=== PATIENT | female | born 1950 | race Caucasian/White ===

== ENCOUNTER 2017-04-04 05:50 | Inpatient (IN) | payer BC, MEDICARE ==
[2017-04-04] MEDS ORDERED: TRANEXAMIC ACID 1,000 MG in NORMAL SALINE 100 ML IV PRN (06:00)
[2017-04-04] MEDS ORDERED: RINGER'S SOLUTION,LACTATED 1,000 ML IV PRN (06:00)
[2017-04-04] MEDS ORDERED: CLINDAMYCIN PHOSPHATE 900 MG in DEXTROSE 5 % IN WATER 100 ML IV PRN ×2 (06:00)
[2017-04-04] MEDS ORDERED: ROPIVACAINE HCL/PF 100 MG, EPINEPHrine 0.2 MG, KETOROLAC TROMETHAMINE 30 MG in NORMAL S... IJ PRN (06:00)
[2017-04-04] MEDS ORDERED: RINGER'S SOLUTION,LACTATED 1,000 ML IV ONE ×3 (07:45→10:00)
[2017-04-04] MEDS ORDERED: MAG HYDROX/ALUMINUM HYD/SIMETH 30 ML UDC PO PRN (09:46)
[2017-04-04] MEDS ORDERED: ZOLPIDEM TARTRATE 5 MG TABLET PO PRN (09:46)
[2017-04-04] MEDS ORDERED: ONDANSETRON HCL/PF 2 MG/ML VIAL IV PRN (09:46)
[2017-04-04] MEDS ORDERED: MAGNESIUM HYDROXIDE 30 ML UDC PO PRN (09:46)
[2017-04-04] MEDS ORDERED: HYDROmorphone HCL 1 MG/ML DISP.SYRIN IV PRN (09:46)
[2017-04-04] MEDS ORDERED: PROMETHAZINE HCL 5 MG in DEXTROSE 5 % IN WATER 50 ML IV PRN ×2 (09:46)
[2017-04-04] MEDS ORDERED: diphenhydrAMINE HCL 50 MG/ML VIAL IV PRN (09:46)
[2017-04-04] MEDS ORDERED: FLUTICASONE PROPIONATE 120 SPRAY INHALER NS PRN (09:48)
[2017-04-04] MEDS ORDERED: EPINEPHrine 0.3 MG DISP.SYRIN IM PRN (09:48)
--- NOTE | 2017-04-04 09:51 | OR ---
Operative Report - Dictated Report Narrative: Date: 04/04/2017 Preoperative diagnosis: Right Knee degenerative joint disease. Postoperative diagnosis: Right Knee degenerative joint disease. Procedure: Right Total knee arthroplasty. Surgeon: Kirk Cruz M.D. Fire Code Inspector: Tad Marrufo PA-C Anesthesia: Spinal with regional block and local periarticular joint injection. Complications: None Specimens: Bone for disposal. Estimated blood loss: Minimal. Tourniquet time: 80 Minutes at 325 millimeters of mercury. Retained implants: Depuy Attune size 4 right lugged cemented posterior stabilized femoral component. Size 5 fixed-bearing cemented tibial platform. 4 by 5 millimeter posterior stabilized cross-linked tibial insert. 38 millimeter medialized patella button. Indications: Mrs. Zimmer is a 67-year-old female who has had long-standing right knee pain. This patient was followed in my clinic for period of time with significant complaints of right knee pain consistent with arthritic changes. She had failed conservative measures including, but not limited to, activity modification, passage of time, medications, and other conservative measures. Patient wished to proceed with surgical treatment. The risks, benefits, and alternatives were discussed in clinic. The risks of , blood clots, bleeding, infection, nerve/tendon blood vessel/ injury, malposition of components, intraoperative fracture, postoperative limited range of motion, persistent pain, failure of components, and need for additional procedures. Patient wished to proceed consent was obtained after answering all questions. Procedure: After marking the correct extremity on the floor, the patient was taken to the operating room. A timeout was performed. IV antibiotics consisting of clindamycin secondary to cephalexin allergy were administered prior to the procedure. A regional followed by spinal anesthetic was induced by anesthesia, per my request, on the operative table with all bony prominences well-padded. Holliday catheter was placed, and a bump was placed under the operative side buttock. SCDs and CRISTINA hose were utilized on the nonoperative leg. A well-padded tourniquet was applied to the operative thigh. The operative leg was then pre-scrubbed with alcoho,l prepped, and draped in a standard sterile fashion. After exsanguinating the extremity with an Esmarch bandage, the tourniquet was inflated. After marking out the anterior knee for standard incision centered over the patella, the skin was incised and dissected down to the joint retinaculum. The joint retinaculum was marked out as well as the horizontal axis of the patella, and a standard medial parapatellar arthrotomy was then made. The most proximal aspect of the quadriceps tendon and the patella tendon insertion were protected from release. A partial synovectomy was performed as well as a resection of the infrapatellar fat pad. The distal femoral fat pad proximal to the trochlea was also resected using cautery. The soft tissues were elevated off the medial aspect of the proximal tibia using a Bunn elevator ensuring that we did not transect the medial collateral ligament. Upon initial evaluation range of motion was approximately 0 degrees to 140 degrees of flexion. There were signs of advanced arthrosis in the medial and patellofemoral joint spaces. There were large marginal osteophytes which were removed with a rongeur. The knee was hyperflexed and the patella was tucked laterally. Protecting the surrounding soft tissues with Homans, an entry drill was placed down the femoral canal using Whitesides line for guidance into the entry point. The intramedullary femoral alignment stanislav was utilized in order to cut the distal femur in 5 degrees of valgus resecting 10 millimeters of bone. Next the distal femur was sized to a size 4. A posterior referencing guide was utilized to place the distal femoral cutting block in 3 degrees of external rotation. This was pinned into place. The rotation was confirmed both visually and based on anatomic landmarks. The 4 in 1 cutting jig of the appropriate size was utilized in order to make all bony cuts. The angle wing was used to ensure no notching. Retractors were utilized in order to protect surrounding soft tissues. This cut did not result in any excessive notching. We then cut the box centered over the distal femur. This allowed for resection of the anterior and posterior cruciate ligaments. I then turned my attention to the preparation of the tibia. Using an extra medullary tibial alignment stanislav, 2 millimeters of bone was resected off the medial articular surface. This was made perpendicular to the mechanical axis of the joint with the alignment stanislav centered over the ankle mortise. The alignment stanislav was checked and was noted to be parallel to the mechanical axis, centered over the medial one third of the tibial tubercle, paralleling the anterior surface of the tibia. We then turned our attention to the remaining meniscus and soft tissues. These were removed while protecting the surrounding ligaments and soft tissues. The marginal osteophytes off the anterior, posterior, medial, lateral aspects of the femur and tibia were removed. The tibia was sized out to a size 5. Next the tibia was drilled and punched in an externally rotated position. Next the trial femur and a series of tibial inserts were utilized in order to allow for full extension and maximal flexion. It was found that a 5 millimeter insert gave the best range of motion and stability at multiple flexion points as well as at full extension there was less than 2 mm of gapping both medially and laterally. There is minimal anterior translation with the knee at 90 degrees of flexion and no signs of being able to dislocate the knee. The patella was then prepared. The initial thickness was 22 millimeters. This was reamed down to 12 millimeters parallel to the anterior surface of the patella. It was sized out to a size 38 medialized patella button. This was then drilled and trialed. Without any medial restraint the patella tracked appropriately and did not sublux or dislocate. At this point, it was felt these were the appropriate sized implants, and all trials were removed. The standard periarticular joint injection consisting of ropivacaine, Toradol, and epinephrine were injected into the periarticular joint tissues. The bony surfaces were thoroughly irrigated with a pulsatile- suction saline irrigation device. A bone plug from the prior resected anterior chamfer cut was placed into the drill hole at the distal femur. The bony surfaces were then dried in preparation for placement of the implants. The cement was vacuum mixed per the coffee maker's instructions. The cement was placed on the dry bony surfaces and posterior aspect of the implants. The implants were impacted into place, removing all extruded cement. At this point anesthesia administered tranexamic acid per protocol intravenously. The knee was placed in extension with axial loading with the trial insert while the cement cured. Once the cement cured, all remaining extruded cement was removed. The knee was placed through a range of motion with the trial insert to ensure appropriate range of motion and stability. Final range of motion was approximately 0 to 130 degrees. The knee was again thoroughly irrigated with pulsatile saline lavage. The final polyethylene insert was then impacted into place ensuring no retained soft tissues. The remaining periarticular joint injection was injected. A medium Hemovac drain was placed exiting superior laterally. The knee was then placed over a triangle and the arthrotomy was closed with interrupted #1 Vicryl after thoroughly irrigating the joint. The deep and subcutaneous tissues were closed with interrupted 0 and 3-0 Vicryl respectively. Skin was closed with a running subcutaneous 3-0 Monocryl and Prineo Dermabond dressing. 4 x 4's, Sof-Rol, and a full leg Ender wrap were applied. All sponge, needle, blade, and instrument counts were correct prior to closing the wounds. Postoperative condition: The patient was awoken and transferred to the postanesthesia care unit in stable condition. Plan is to be admitted to the inpatient medical/surgical floor postoperatively for 24 hours of IV antibiotics , physical therapy, occupational therapy, and medical comanagement. Patient will be weightbearing as tolerated with range of motion as tolerated. DVT prophylaxis will be with SCDs, CRISTINA hose, and pharmacological anticoagulation. Anticipated hospital stay is approximately 2-4 days.
[2017-04-04] MEDS: DEXTROSE 5%-LACTATED RINGERS 1,000 ML IV PRN ×2 (11:09→19:07)
[2017-04-04] MEDS: KETOROLAC TROMETHAMINE 15 MG/ML VIAL IV SCH ×3 (11:09→23:25)
[2017-04-04] MEDS: ACETAMINOPHEN 500 MG TABLET PO PRN (15:22)
[2017-04-04] MEDS ORDERED: CLINDAMYCIN PHOSPHATE 900 MG in DEXTROSE 5 % IN WATER 100 ML IV SCH ×2 (19:47)
[2017-04-04] MEDS: METOPROLOL SUCCINATE 50 MG TABLET.SA PO SCH (20:37)
[2017-04-04] MEDS: SIMVASTATIN 40 MG TABLET PO SCH (20:38)
[2017-04-04] MEDS: SENNOSIDES/DOCUSATE SODIUM 1 TAB TABLET PO SCH (20:38)
[2017-04-05] MEDS: DEXTROSE 5%-LACTATED RINGERS 1,000 ML IV PRN (03:20)
[2017-04-05] MEDS: KETOROLAC TROMETHAMINE 15 MG/ML VIAL IV SCH ×4 (05:07→22:48)
[2017-04-05 07:05] LABS: Anion Gap 9.1 mmol/L (6.8-13.8); BUN/Creatinine Ratio 14.3 (9.0-21.6); Estimated Creat Clear 66.4; Potassium 4.1 mmol/L (3.4-4.6)
--- NOTE | 2017-04-05 08:21 | PN ---
Subjective - Date and Time Seen Date: 04/05/17 Time: 08:14 Subjective Narrative: Reports pain controlled. No nausea at this time. [place] she did well getting up to the chair for breakfast this am. Mild lightheadedness. No other complaints. Objective Objective Narrative: Up in chair. Bandages C/D/I. N/V intact PF/DF ankle. Calf supple. Dorsalis pulse 1+. - Vitals Vitals: Last Vital Signs Temp 35.6 C L 04/05/17 06:23 Pulse 54 L 04/05/17 06:23 Resp 18 04/05/17 06:23 BP 123/97 04/05/17 06:23 Pulse Ox 96 04/05/17 06:23 - Abnormal Lab Findings Abnormal Lab Findings: Abnormal Lab Results 04/05/17 Range/Units 06:33 Sodium 145 H (132-142) mmol/L Plasma Sodium 145 H (130-142) mmol/L Chloride 110 H (97-106) mmol/L - Exam Constitutional: Present: Alert, Oriented x3, Cooperative, No distress - Ector: 1. [facility] Physician Documentation - Urinary Catheter Management Urethral (Holliday) Date of Insertion: 04/04/17 Time of Insertion: 08:10 Assessment/Plan - Problems/Diagnosis (1) Status post total right knee replacement using cement Problem: Acute Narrative: PT/Anticoagulation, pain control, Hemogram not in chart at this time, patient will need a wheeled walker for 4-6 weeks post op for ambulation (2) Hypotension Problem: Acute Narrative: Patients Metoprolol was in orderheld. Hemogram still pending. (3) Bradycardia Problem: Acute (4) Hyperlipemia Problem: Chronic (5) Supraventricular tachycardia Problem: Chronic
[2017-04-05] MEDS: ENOXAPARIN SODIUM 40 MG/0.4 ML SYRG SC SCH (08:32)
[2017-04-05] MEDS: LACTOBACILLUS ACIDOPHILUS 100 CAP BTL PO SCH (08:32)
[2017-04-05] MEDS: OMEGA-3 FATTY ACIDS 1 CAP CAPSULE PO SCH (08:33)
[2017-04-05] MEDS: oxyCODONE HCL/ACETAMINOPHEN 1 TAB TABLET PO PRN ×2 (18:38→23:23)
[2017-04-05] MEDS: SENNOSIDES/DOCUSATE SODIUM 1 TAB TABLET PO SCH (21:16)
[2017-04-05] MEDS: SIMVASTATIN 40 MG TABLET PO SCH (21:17)
[2017-04-05] MEDS: METOPROLOL SUCCINATE 50 MG TABLET.SA PO SCH (21:17)
[2017-04-06] MEDS: KETOROLAC TROMETHAMINE 15 MG/ML VIAL IV SCH (04:38)
[2017-04-06 05:58] LABS: Hematocrit 32.1 % (37.0-47.0); Hemoglobin 10.5 gm/dL (12.5-16.0); Mean Cell Volume 89.9 fl (78-100); Mean Corpuscular Hemoglobin 29.4 pg (27-31); Mean Corpuscular Hgb Conc 32.7 g/dl (32-36); Mean Platelet Volume 12.4 fl (6.0-9.5); Platelet Count 104 K/mm3 (150-450); Red Blood Count 3.57 M/mm3 (4.2-5.4); Red Cell Distribution Width 13.3 % (11.5-14.0); White Blood Count 6.5 K/mm3 (4.0-10.5)
[2017-04-06 06:27] LABS: Anion Gap 11.3 mmol/L (6.8-13.8); BUN/Creatinine Ratio 18.1 (9.0-21.6); Calcium * 8.8 mg/dL (7.9-10.9); Carbon Dioxide 26.6 mmol/L (24-32.6); Estimated Creat Clear 54.4; Potassium 3.9 mmol/L (3.4-4.6)
[2017-04-06] MEDS: ENOXAPARIN SODIUM 40 MG/0.4 ML SYRG SC SCH (08:32)
[2017-04-06] MEDS: OMEGA-3 FATTY ACIDS 1 CAP CAPSULE PO SCH (08:33)
[2017-04-06] MEDS: LACTOBACILLUS ACIDOPHILUS 100 CAP BTL PO SCH (08:34)
--- NOTE | 2017-04-06 09:41 | DS ---
(1) Acute blood loss anemia Problem: Acute (2) Bradycardia Problem: Chronic (3) Hypotension Problem: Acute (4) Status post total right knee replacement using cement Problem: Acute (5) Hyperlipemia Problem: Chronic (6) Supraventricular tachycardia Problem: Chronic Description of Stay: Mrs. Zimmer was admitted to the floor after undergoing right total knee arthroplasty. Tolerated this well. Was admitted to the floor postoperatively for 24 hours of IV antibiotics, pain control, medical comanagement, and occupational and physical therapy. OT and PT were consulted to assist with activities of daily living and ambulation. Was made weightbearing as tolerated with range of motion as tolerated. Pain was initially controlled with IV regimen. This was transitioned to oral once tolerating a by mouth intake. Was resumed on home diet and medications. Had a Holliday catheter inserted and the operating room which was discontinued on postoperative day 1. A drain was placed intraoperatively into the knee which was discontinued on postoperative day 1. Lovenox SCD and CRISTINA hose were utilized for DVT prophylaxis. Vital signs remained stable to the hospital course. Serial labs were obtained which showed a final hemoglobin of 10.5 grams. BMP was reviewed and was stable. Physical examination throughout the hospital course showed an extremity that had sensation that was intact to light touch, palpable pulses, a benign wound, motor intact to the toes, ankle, and knee. Knee range of motion was approximately 5 degrees to 60 degrees. Once an oral pain regimen was tolerated and physical therapy goals were met, it was felt that they were stable for discharge to home. Instructions: Continue with weightbearing as tolerated and range of motion as tolerated. She is okay to shower as long as there is no drainage from the wound. She is instructed to keep the wound clean and dry and cover with dry gauze and tape and change every 2-3 days as needed if there is any drainage. Cover wound while showering if there is any drainage. Continue with physical therapy. Resume home diet. Report any fever over 101.5 Fahrenheit, uncontrolled pain, increased drainage, foul odor of drainage, new or increased calf pain or shortness of breath, or any other significant complaints. A 325mg dialy aspirin will be started after finishing anticoagulation if not allergic. Continue with CRISTINA hose on the operative extremity until instructed otherwise. No driving until instructed otherwise. Follow up in approximately 10-14 days. Procedures Performed: see notes below List Procedures: Right total knee arthroplasty Discharge Disposition: Home self care Disposition: Home self-care Condition: Good Discharge Activity: Activity as tolerated, Weight bearing Discharge Diet: General/regular food Retirement Therapy: Physicial Therapy Referrals: Jie Estevez MD [Primary Care Provider] - Additional Patient Instructions (free text): Follow up with Dr. Cruz on March at 09:45 am. Prescriptions (Any new or edited meds): Enoxaparin Sodium [Lovenox] 40 mg SC Q24H #7 disp.syrin Sennosides/Docusate Sodium [Senokot-S] 2 tab PO HS #30 tablet oxyCODONE HCL [Oxycontin] 10 mg PO BID #20 tab.sr.12h oxyCODONE HCL/ACETAMINOPHEN [Percocet 5 MG/325 MG] 2 tab PO Q4H PRN #90 tablet PRN Reason: Moderate Pain Complete Home Medications List: Complete Home Medication List: Aspirin [Aspirin Chewable] 81 mg PO DAILY 11/13/12 Simvastatin [Zocor] 40 mg PO HS 11/13/12 EPINEPHrine [Epipen 2-Hosea] 0.3 mg IM ONCE PRN 03/23/17 Fluticasone Propionate [Flonase] 2 spray NS DAILY PRN 03/23/17 Krill/Om-3/Dha/Epa/Phospho/Ast [Megared [place]-3 Krill Oil Sfgl] 1 each PO DAILY 03/23/17 L.acidoph,Paracasei, B.lactis [Probiotic] 1 each PO DAILY 03/23/17 Metoprolol Succinate [Toprol Xl] 50 mg PO HS 03/23/17 Enoxaparin Sodium [Lovenox] 40 mg SC Q24H #7 disp.syrin 04/06/17 Sennosides/Docusate Sodium [Senokot-S] 2 tab PO HS #30 tablet 04/06/17 oxyCODONE HCL [Oxycontin] 10 mg PO BID #20 tab.sr.12h 04/06/17 oxyCODONE HCL/ACETAMINOPHEN [Percocet 5 MG/325 MG] 2 tab PO Q4H PRN #90 tablet 04/06/17 Amb Orders for Discharge: PT Evaluation and Treatment Facility: [facility], Location: Rehabilitation Services
[2017-04-06] MEDS: ACETAMINOPHEN 500 MG TABLET PO PRN (11:14)
[2017-04-06] MEDS ORDERED: ONDANSETRON HCL 4 MG TABLET PO PRN (14:40)
[2017-04-06 16:30] VITALS: BP 106/45
== END 2017-04-06 16:22 | disposition home or self-care (01) | DRG 470 ==
LOC: MS 05:50
PROVIDERS: ADMIT Orthopaedic Surgery; ATTEND Orthopaedic Surgery
PROC: 0SRC0J9 Replacement of Right Knee Joint with Synthetic Substitute, Cemented, Open Approach (ICD-10-PCS; principal; 2017-04-04 09:15)
DX: M17.11 Unilateral primary osteoarthritis, right knee (principal); D62 Acute posthemorrhagic anemia; K21.9 Gastro-esophageal reflux disease without esophagitis; E78.5 Hyperlipidemia, unspecified; R00.1 Bradycardia, unspecified
CPT/HCPCS: 27447; 36415; 73560; 80048; 85027; 97110; 97116; 97163; 97165; 97530; 97535; J2405

== ENCOUNTER 2017-10-15 06:33 | Inpatient (IN) | payer BC, MEDICARE ==
[~2017-10-15 06:33] MED LIST: CLINDAMYCIN PHOSPHATE 900 MG in DEXTROSE 5 % IN WATER 100 ML IV PRN; ROPIVACAINE HCL/PF 100 MG, KETOROLAC TROMETHAMINE 30 MG, EPINEPHrine 0.2 MG in NORMAL S... IJ PRN; TRANEXAMIC ACID 1,000 MG in NORMAL SALINE 100 ML IV PRN
[2017-10-15] MEDS: RINGER'S SOLUTION,LACTATED 1,000 ML IV PRN ×3 (07:12→19:06)
[2017-10-15] MEDS ORDERED: RINGER'S SOLUTION,LACTATED 1,000 ML IV ONE (08:35)
--- NOTE | 2017-10-15 09:42 | POSTOP NO ---
Date of Surgery: 10/15/17 Patient Tolerated the Procedure: Well Post Operative Diagnosis/Procedures: Care Management Specialist: Tad Marrufo PA-C Post-operative Diagnosis: Left knee degenerative joint disease Finding: Above Procedure: Left total knee arthroplasty Estimated Blood Loss: Minimal Specimens: Bone for disposal
[2017-10-15] MEDS ORDERED: MAGNESIUM HYDROXIDE 30 ML UDC PO PRN (09:44)
[2017-10-15] MEDS ORDERED: MAG HYDROX/ALUMINUM HYD/SIMETH 30 ML UDC PO PRN (09:44)
[2017-10-15] MEDS ORDERED: PROMETHAZINE HCL 5 MG in DEXTROSE 5 % IN WATER 50 ML IV PRN ×2 (09:44)
[2017-10-15] MEDS ORDERED: diphenhydrAMINE HCL 50 MG/ML VIAL IV PRN (09:44)
[2017-10-15] MEDS ORDERED: oxyCODONE HCL/ACETAMINOPHEN 1 TAB TABLET PO PRN (09:44)
[2017-10-15] MEDS ORDERED: ZOLPIDEM TARTRATE 5 MG TABLET PO PRN (09:44)
[2017-10-15] MEDS ORDERED: DEXTROSE 5%-LACTATED RINGERS 1,000 ML IV PRN (09:44)
[2017-10-15] MEDS ORDERED: ONDANSETRON HCL/PF 2 MG/ML VIAL IV PRN (09:44)
--- NOTE | 2017-10-15 09:44 | OR ---
Operative Report - Dictated Report Narrative: Date: 10/15/2017 Preoperative diagnosis: Left Knee degenerative joint disease. Postoperative diagnosis: Left Knee degenerative joint disease. Procedure: Left Total knee arthroplasty. Surgeon: Kirk Cruz M.D. Cook Fish Eggs: Tad Marrufo PA-C Anesthesia: Spinal with regional block and local periarticular joint injection. Complications: None Specimens: Bone for disposal. Estimated blood loss: Minimal. Tourniquet time: 75 Minutes at 325 millimeters of mercury. Retained implants: Depuy Attune size 5 narrow left lugged cemented posterior stabilized femoral component. Size 5 fixed-bearing cemented tibial platform. 5 by 6 millimeter posterior stabilized cross-linked tibial insert. 38 millimeter medialized patella button. Indications: Mrs. Zimmer is a 67-year-old female who previously underwent a right total knee arthroplasty did well and had ongoing left knee pain and arthrosis. This patient was followed in my clinic for period of time with significant complaints of left knee pain consistent with arthritic changes. She had failed conservative measures including, but not limited to, activity modification, passage of time, medications, and other conservative measures. Patient wished to proceed with surgical treatment. The risks, benefits, and alternatives were discussed in clinic. The risks of , blood clots, bleeding, infection, nerve/tendon blood vessel/ injury, malposition of components, intraoperative fracture, postoperative limited range of motion, persistent pain, failure of components, and need for additional procedures. Patient wished to proceed consent was obtained after answering all questions. Procedure: After marking the correct extremity on the floor, the patient was taken to the operating room. A timeout was performed. IV antibiotics consisting of clindamycin secondary to allergies were administered prior to the procedure. A regional followed by spinal anesthetic was induced by anesthesia, per my request, on the operative table with all bony prominences well-padded. Holliday catheter was placed, and a bump was placed under the operative side buttock. SCDs and CRISTINA hose were utilized on the nonoperative leg. A well- padded tourniquet was applied to the operative thigh. The operative leg was then pre-scrubbed with alcoho,l prepped, and draped in a standard sterile fashion. After exsanguinating the extremity with an Esmarch bandage, the tourniquet was inflated. After marking out the anterior knee for standard incision centered over the patella, the skin was incised and dissected down to the joint retinaculum. The joint retinaculum was marked out as well as the horizontal axis of the patella, and a standard medial parapatellar arthrotomy was then made. The most proximal aspect of the quadriceps tendon and the patella tendon insertion were protected from release. A partial synovectomy was performed as well as a resection of the infrapatellar fat pad. The distal femoral fat pad proximal to the trochlea was also resected using cautery. The soft tissues were elevated off the medial aspect of the proximal tibia using a Bunn elevator ensuring that we did not transect the medial collateral ligament. Upon initial evaluation range of motion was approximately 0 degrees to 130 degrees of flexion. There were signs of advanced arthrosis in the medial and patellofemoral joint spaces. There were large marginal osteophytes which were removed with a rongeur. The knee was hyperflexed and the patella was tucked laterally. Protecting the surrounding soft tissues with Homans, an entry drill was placed down the femoral canal using Whitesides line for guidance into the entry point. The intramedullary femoral alignment stanislav was utilized in order to cut the distal femur in 5 degrees of valgus resecting 10 millimeters of bone. Next the distal femur was sized to a size 5 narrow. A posterior referencing guide was utilized to place the distal femoral cutting block in 3 degrees of external rotation. This was pinned into place. The rotation was confirmed both visually and based on anatomic landmarks. The 4 in 1 cutting jig of the appropriate size was utilized in order to make all bony cuts. The angle wing was used to ensure no notching. Retractors were utilized in order to protect surrounding soft tissues. This cut did not result in any excessive notching. We then cut the box centered over the distal femur. This allowed for resection of the anterior and posterior cruciate ligaments. I then turned my attention to the preparation of the tibia. Using an extra medullary tibial alignment stanislav, 3 millimeters of bone was resected off the medial articular surface. This was made perpendicular to the mechanical axis of the joint with the alignment stanislav centered over the ankle mortise. The alignment stanislav was checked and was noted to be parallel to the mechanical axis, centered over the medial one third of the tibial tubercle, paralleling the anterior surface of the tibia. We then turned our attention to the remaining meniscus and soft tissues. These were removed while protecting the surrounding ligaments and soft tissues. The marginal osteophytes off the anterior, posterior, medial, lateral aspects of the femur and tibia were removed. The tibia was sized out to a size 5. Next the tibia was drilled and punched in an externally rotated position. Next the trial femur and a series of tibial inserts were utilized in order to allow for full extension and maximal flexion. It was found that a 6 millimeter insert gave the best range of motion and stability at multiple flexion points as well as at full extension there was less than 2 mm of gapping both medially and laterally. There is minimal anterior translation with the knee at 90 degrees of flexion and no signs of being able to dislocate the knee. The patella was then prepared. The initial thickness was 22 millimeters. This was reamed down to 12 millimeters parallel to the anterior surface of the patella. It was sized out to a size 38 medialized patella button. This was then drilled and trialed. Without any medial restraint the patella tracked appropriately and did not sublux or dislocate. At this point, it was felt these were the appropriate sized implants, and all trials were removed. The standard periarticular joint injection consisting of ropivacaine, Toradol, and epinephrine were injected into the periarticular joint tissues. The bony surfaces were thoroughly irrigated with a pulsatile- suction saline irrigation device. A bone plug from the prior resected anterior chamfer cut was placed into the drill hole at the distal femur. The bony surfaces were then dried in preparation for placement of the implants. The cement was vacuum mixed per the cap and hat production supervisor's instructions. The cement was placed on the dry bony surfaces and posterior aspect of the implants. The implants were impacted into place, removing all extruded cement. At this point anesthesia administered tranexamic acid per protocol intravenously. The knee was placed in extension with axial loading with the trial insert while the cement cured. Once the cement cured, all remaining extruded cement was removed. The knee was placed through a range of motion with the trial insert to ensure appropriate range of motion and stability. Final range of motion was approximately 0 to 130 degrees. The knee was again thoroughly irrigated with pulsatile saline lavage. The final polyethylene insert was then impacted into place ensuring no retained soft tissues. The remaining periarticular joint injection was injected. A medium Hemovac drain was placed exiting superior laterally. The knee was then placed over a triangle and the arthrotomy was closed with interrupted #1 Vicryl after thoroughly irrigating the joint. The deep and subcutaneous tissues were closed with interrupted 0 and 3-0 Vicryl respectively. Skin was closed with a running subcutaneous 3-0 Monocryl and Prineo Dermabond dressing. 4 x 4's, Sof-Rol, and a full leg Ender wrap were applied. All sponge, needle, blade, and instrument counts were correct prior to closing the wounds. Postoperative condition: The patient was awoken and transferred to the postanesthesia care unit in stable condition. Plan is to be admitted to the inpatient medical/surgical floor postoperatively for 24 hours of IV antibiotics , physical therapy, occupational therapy, and medical comanagement. Patient will be weightbearing as tolerated with range of motion as tolerated. DVT prophylaxis will be with SCDs, CRISTINA hose, and pharmacological anticoagulation. Anticipated hospital stay is approximately 2-4 days.
[2017-10-15] MEDS ORDERED: EPINEPHrine 0.3 MG DISP.SYRIN IM PRN (09:46)
[2017-10-15] MEDS ORDERED: HYDROmorphone HCL 2 MG/ML VIAL IV PRN (09:52)
--- NOTE | 2017-10-15 10:11 | OR ---
Anesthesia Procedure Note - Anesthesia Procedure Note Date of Service: 10/15/17 Narrative: Vital Signs - Last Taken Temp 35.7 C L 10/15/17 10:00 Pulse 56 L 10/15/17 10:05 Resp 16 10/15/17 10:05 BP 91/43 10/15/17 10:05 Pulse Ox 99 10/15/17 10:05 O2 Oxygen Delivery Method Nasal Cannula 10/15/17 10:10 ANESTHESIA PROCEDURE NOTE Date of Procedure: 10/15/2017 Time of procedure: 7:50 AM. Performed by: AKHIL Puga CRNA, MSN Welfare Eligibility Worker: Nieves Hebert RN. Preprocedure diagnosis: Post knee arthroplasty pain relief. Post procedure diagnosis: Same. Procedure: Left Adductor Canal Block. Indications: Post left total knee arthroplasty pain relief pain relief. Findings: See below. Details of the procedure: The patient was brought to OR for and placed in supine position. The patient's left femoral area to the knee was prepped with chlorhexidine and using ultrasound guidance the left femoral artery and nerve was identified and then followed to the level of the adductor canal. Lidocaine 1% was infiltrated to the skin of the intended injection site. Under ultrasound guidance the saphenous nerve was approached with visualization of a 2 inch shielded block needle. Once saphenous nerve was identified with proximity to the needle tip, the saphenous nerve was surrounded with 18 mL bupivacaine 0.25% with 1-200,000 epinephrine. Please see radiology/ultrasound report for details and retained images of the procedure. EBL: 0 Fluids: N/A. Specimen: N/A. Post procedure condition: The patient tolerated the procedure well. No complications were noted. Thank you for this consultation. Jose Hernandez CRNA, DISTRIBUT[employer] C[employer] ADMINISTRATOR, MSN
[2017-10-15] MEDS: KETOROLAC TROMETHAMINE 15 MG/ML VIAL IV SCH ×3 (10:59→22:14)
[2017-10-15] MEDS: ACETAMINOPHEN 500 MG TABLET PO PRN (15:45)
[2017-10-15] MEDS ORDERED: CLINDAMYCIN PHOSPHATE 900 MG in DEXTROSE 5 % IN WATER 100 ML IV SCH ×2 (19:45)
[2017-10-15] MEDS ORDERED: SIMVASTATIN 40 MG TABLET PO SCH (21:00)
[2017-10-15] MEDS ORDERED: METOPROLOL SUCCINATE 50 MG TABLET.SA PO SCH (21:00)
[2017-10-15] MEDS ORDERED: SENNOSIDES/DOCUSATE SODIUM 1 TAB TABLET PO SCH (21:00)
[2017-10-16] MEDS: KETOROLAC TROMETHAMINE 15 MG/ML VIAL IV SCH ×2 (04:06→10:05)
[2017-10-16 05:54] LABS: Hematocrit 33.3 % (37.0-47.0); Mean Cell Volume 88.8 fl (78-100); Mean Corpuscular Hemoglobin 29.3 pg (27-31); Mean Platelet Volume 11.7 fl (6.0-9.5); Platelet Count 111 K/mm3 (150-450); Red Blood Count 3.75 M/mm3 (4.2-5.4); Red Cell Distribution Width 15.6 % (11.5-14.0); White Blood Count 4.7 K/mm3 (4.0-10.5)
[2017-10-16 06:09] LABS: Anion Gap 8.5 mmol/L (6.8-13.8); BUN/Creatinine Ratio 15.7 (9.0-21.6); Calcium * 8.7 mg/dL (7.9-10.9); Carbon Dioxide 31.4 mmol/L (24-32.6); Estimated Creat Clear 56.9; Potassium 3.9 mmol/L (3.4-4.6)
[2017-10-16] MEDS ORDERED: ENOXAPARIN SODIUM 40 MG/0.4 ML SYRG SC SCH (08:45)
[2017-10-16] MEDS ORDERED: MULTIVITAMIN/IRON/FOLIC ACID 1 TAB TABLET PO SCH (09:00)
[2017-10-16 12:12] VITALS: BP 98/48
--- NOTE | 2017-10-16 12:30 | DS ---
(1) Acute blood loss anemia Problem: Acute (2) Bradycardia Problem: Chronic (3) Hyperlipemia Problem: Chronic (4) Supraventricular tachycardia Problem: Chronic (5) Status post total left knee replacement Problem: Acute Description of Stay: Mrs. Zimmer was admitted to the floor after undergoing left total knee arthroplasty. Tolerated this well. Was admitted to the floor postoperatively for 24 hours of IV antibiotics, pain control, medical comanagement, and occupational and physical therapy. OT and PT were consulted to assist with activities of daily living and ambulation. Was made weightbearing as tolerated with range of motion as tolerated. Pain was initially controlled with IV regimen. This was transitioned to oral once tolerating a by mouth intake. Was resumed on home diet and medications. Had a Holliday catheter inserted and the operating room which was discontinued on postoperative day 1. A drain was placed intraoperatively into the knee which was discontinued on postoperative day 1. Lovenox SCD and CRISTINA hose were utilized for DVT prophylaxis. Vital signs remained stable to the hospital course. Serial labs were obtained which showed a final hemoglobin of 11.0 grams. BMP was reviewed and was stable. She did have some confusion and oversedation from her pain medicines which were stopped and she was tolerating nonnarcotic pain medicines for pain control. She had some mild nausea which also improved after stopping narcotics. Physical examination throughout the hospital course showed an extremity that had sensation that was intact to light touch, palpable pulses, a benign wound, motor intact to the toes, ankle, and knee. Knee range of motion was approximately 10 degrees to 70 degrees. Once an oral pain regimen was tolerated and physical therapy goals were met, it was felt that they were stable for discharge to home. Instructions: Continue with weightbearing as tolerated and range of motion as tolerated. It is okay to shower and get the wound wet as long as there is no drainage from the wound. Do not bathe or soak the wound. If there is any drainage from the wound keep the wound clean and dry and cover with dry gauze and tape. Change every 2-3 days as needed if there is any drainage. Cover wound while showering if there is any drainage. Continue with physical therapy. Resume home diet. Report any fever over 101.5 Fahrenheit, uncontrolled pain, increased drainage, foul odor of drainage, new or increased calf pain or shortness of breath, or any other significant complaints. A 325mg dialy aspirin will be started after finishing anticoagulation if not allergic. Continue with CRISTINA hose on the operative extremity until instructed otherwise. No driving until instructed otherwise. Follow up in approximately 10-14 days. Procedures Performed: see notes below List Procedures: Left total knee arthroplasty Discharge Disposition: Home self care Disposition: Home self-care Condition: Good Discharge Activity: Activity as tolerated, Weight bearing Discharge Diet: General/regular food Referrals: Jie Estevez MD [Primary Care Provider] - Additional Patient Instructions (free text): Out patient Physical Therapy at [facility] rehab is SundayNovember 16 at 9:30am. Follow up with Dr. Cruz on SundayOctober 30 at 9:00 am. Prescriptions (Any new or edited meds): Enoxaparin Sodium [Lovenox] 40 mg SC Q24H #7 disp.syrin Promethazine HCl [Phenergan (Promethazine)] 25 mg PO Q6H PRN #30 tab PRN Reason: nausea/vomiting traMADol HCL [Ultram] 50 mg PO QID PRN #60 tablet PRN Reason: Pain Complete Home Medications List: Complete Home Medication List: Simvastatin [Zocor] 40 mg PO HS 11/13/12 EPINEPHrine [Epipen 2-Hosea] 0.3 mg IM ONCE PRN 03/23/17 Metoprolol Succinate [Toprol Xl] 50 mg PO HS 03/23/17 Multivitamin/Iron/Folic Acid [Centrum Adults Tablet] 1 each PO DAILY 09/26/17 diphenhydrAMINE HCL [Benadryl] 25 mg PO Q6H PRN 09/26/17 Enoxaparin Sodium [Lovenox] 40 mg SC Q24H #7 disp.syrin 10/16/17 Promethazine HCl [Phenergan (Promethazine)] 25 mg PO Q6H PRN #30 tab 10/16/17 Sennosides/Docusate Sodium [Senokot-S] 2 tab PO HS tablet 10/16/17 traMADol HCL [Ultram] 50 mg PO QID PRN #60 tablet 10/16/17 Amb Orders for Discharge: PT Evaluation and Treatment Facility: [facility], Location: Rehabilitation Services
[2017-10-16] MEDS: ACETAMINOPHEN 500 MG TABLET PO PRN (13:01)
== END 2017-10-16 14:20 | disposition home or self-care (01) | DRG 470 ==
LOC: MS 06:33 → EDSTATUS 08:00
PROVIDERS: ADMIT Orthopaedic Surgery; ATTEND Orthopaedic Surgery
PROC: 0SRD0J9 Replacement of Left Knee Joint with Synthetic Substitute, Cemented, Open Approach (ICD-10-PCS; principal; 2017-10-15)
DX: I47.1 Supraventricular tachycardia; E78.5 Hyperlipidemia, unspecified; Z79.82 Long term (current) use of aspirin; M17.0 Bilateral primary osteoarthritis of knee; Z88.3 Allergy status to other anti-infective agents; D62 Acute posthemorrhagic anemia; R00.1 Bradycardia, unspecified
CPT/HCPCS: 27447; 36415; 73560; 80048; 85027; 97110; 97116; 97161; 97166; J2405